=== PATIENT | female | born 1965 | race Caucasian/White ===

== ENCOUNTER 2024-10-07 09:19 | Emergency (ER) | payer BC ==
[2024-10-07] MEDS ORDERED: Sodium Chloride 0.9% 10 ML Syringe FLUSH PRN (09:38)
[2024-10-07 10:11] LABS: EOSINOPHILS PERCENT AUTO 0.7 % (0.0-4.0); HEMATOCRIT 30.7 % (33.0-47.0); HEMOGLOBIN 10.6 g/dL (12.0-16.0); IMMATURE GRAN ABSOLUTE AUTO 0.01 x10^3/uL (0.00-0.07); LYMPHOCYTES ABSOLUTE AUTO 1.1 x10^3/uL (1.0-4.8); LYMPHOCYTES PERCENT AUTO 27.3 % (25.0-50.0); MEAN CORPUSCULAR HEMOGLOBIN 31.5 pg (26.0-32.0); MEAN CORPUSCULAR HGB CONC 34.5 g/dL (32.0-36.0); MEAN CORPUSCULAR VOLUME 91.4 fL (78.0-93.0); MONOCYTES ABSOLUTE AUTO 0.5 x10^3/uL (0.0-0.8); MONOCYTES PERCENT AUTO 12.6 % (2.0-11.0); NEUTROPHILS ABSOLUTE AUTO 2.5 x10^3/uL (1.8-7.7); NEUTROPHILS PERCENT AUTO 59.2 % (50.0-80.0); PLATELET COUNT,PLT 138 x10^3/uL (130-400); RED BLOOD CELL COUNT 3.36 x10^6/uL (4.00-5.50); WHITE BLOOD CELL COUNT,WBC 4.1 x10^3/uL (4.0-10.0)
[2024-10-07 10:23] LABS: INR 0.9 (0.9-1.1); PROTHROMBIN TIME 9.9 SEC (9.6-12.0); PTT,PARTIAL THROMBOPLSTIN TIME 24.5 SEC (23.5-33.2)
[2024-10-07 10:27] LABS: ALBUMIN 3.4 g/dL (3.4-5.0); ANION GAP 11.9 mmol/L (5-15); BILIRUBIN TOTAL 0.6 mg/dL (0.2-1.0); CALCIUM 9.2 mg/dL (8.5-10.1); CREATININE 0.8 mg/dL (0.55-1.02); EST CRCL DRUG DOSING (CG) 63.41 mL/min; MAGNESIUM 1.6 mg/dL (1.8-2.4); POTASSIUM,K 3.9 mmol/L (3.5-5.1); PROTEIN TOTAL,TP 6.8 g/dL (6.4-8.2)
[2024-10-07] MEDS: Iopamidol 755 Mg/ML 100 ML Bottle IVPUSH ONE (10:54)
[2024-10-07] MEDS: Dexamethasone 4 MG/ML SDV IVPUSH SCH (12:40)
[2024-10-07] MEDS: levETIRAcetam 500 MG/5 ML SDV IVPUSH SCH (12:40)
[2024-10-07] MEDS: Omeprazole 20 MG Cap.CR PO ONE (12:41)
== END 2024-10-07 12:43 | disposition short-term general hospital (02) ==
LOC: VM.ED 09:19
DX: G93.6 Cerebral edema (principal); R47.01 Aphasia; E11.9 Type 2 diabetes mellitus without complications; Z79.84 Long term (current) use of oral hypoglycemic drugs
CPT/HCPCS: 70450; 71045; 80053; 83735; 84484; 85025; 85610; 85730; 93005; 96374; 96375; 99285-25; A9270-GY; J1100; J1953

== ENCOUNTER 2024-10-29 18:08 | Emergency (ER) | payer BC | END 2024-10-29 18:51 | disposition home or self-care (01) | LOC: VM.ED 18:08 | DX: E11.65 Type 2 diabetes mellitus with hyperglycemia (principal) | CPT/HCPCS: 82947; 99283; 99284 ==

== ENCOUNTER 2024-11-16 20:55 | Inpatient (IN) | payer BC ==
[2024-11-16] MEDS ORDERED: Sodium Chloride 0.9% 10 ML Syringe FLUSH PRN (21:02)
[2024-11-16] MEDS: Sodium Chloride 0.9% 1,000 ML IV ONE (21:30)
[2024-11-16 21:34] LABS: EOSINOPHILS PERCENT AUTO 0.3 % (0.0-4.0); HEMATOCRIT 26.3 % (33.0-47.0); HEMOGLOBIN 9.2 g/dL (12.0-16.0); IMMATURE GRAN ABSOLUTE AUTO 0.03 x10^3/uL (0.00-0.07); LYMPHOCYTES ABSOLUTE AUTO 0.4 x10^3/uL (1.0-4.8); LYMPHOCYTES PERCENT AUTO 12.5 % (25.0-50.0); MEAN CORPUSCULAR HEMOGLOBIN 30.5 pg (26.0-32.0); MEAN CORPUSCULAR VOLUME 87.1 fL (78.0-93.0); MONOCYTES ABSOLUTE AUTO 0.2 x10^3/uL (0.0-0.8); MONOCYTES PERCENT AUTO 7.7 % (2.0-11.0); NEUTROPHILS ABSOLUTE AUTO 2.3 x10^3/uL (1.8-7.7); NEUTROPHILS PERCENT AUTO 78.5 % (50.0-80.0); PLATELET COUNT,PLT 101 x10^3/uL (130-400); RED BLOOD CELL COUNT 3.02 x10^6/uL (4.00-5.50)
[2024-11-16 21:55] LABS: A/G RATIO 0.37; ALBUMIN 1.8 g/dL (3.4-5.0); BILIRUBIN TOTAL 0.5 mg/dL (0.2-1.0); CREATININE 0.9 mg/dL (0.55-1.02); EST CRCL DRUG DOSING (CG) 56.36 mL/min; PROTEIN TOTAL,TP 6.7 g/dL (6.4-8.2)
[2024-11-16 22:03] LABS: APPEARANCE,URINE CLEAR (CLEAR); BILIRUBIN,URINE NEGATIVE (NEGATIVE); COLOR,URINE YELLOW (YELLOW); GLUCOSE,URINE NEGATIVE (NEGATIVE); KETONES,URINE NEGATIVE (NEGATIVE); LEUKOCYTE ESTERASE,URINE NEGATIVE (NEGATIVE); NITRITE,URINE NEGATIVE (NEGATIVE); OCCULT BLOOD,URINE NEGATIVE (NEGATIVE); PH,URINE 5.5 (5.0-8.0); PROTEIN,URINE 30 mg/dL (NEGATIVE)
[2024-11-16 22:06] LABS: AMORPHOUS SEDIMENT,URINE OCCASIONAL; BACTERIA,URINE RARE /HPF (NOT SEEN); MUCUS,URINE NOT SEEN /LPF (NOT SEEN); RBC,URINE 0-5 /HPF (NOT SEEN); SQUAMOUS EPITHELIAL CELLS,UR RARE /HPF (NOT SEEN); WBC,URINE 0-5 /HPF (NOT SEEN)
[2024-11-16] MEDS: Lactated Ringers 1,000 ML IV ONE (22:45)
[2024-11-16] MEDS: levETIRAcetam 500 MG Tab PO ONE (23:13)
[2024-11-16] MEDS: Cefepime 2 GM Vial IVPUSH ONE (23:34)
[2024-11-17] MEDS: VANCOmycin 1 GM in Sodium Chloride 0.9% 250 ML IV ONE (00:19)
[2024-11-17] MEDS ORDERED: Ondansetron 4 MG/2 ML SDV IV PRN (01:57)
[2024-11-17] MEDS ORDERED: Albuterol/Ipratropium 3.0-0.5 MG/3 ML Neb Soln NEB PRN (01:57)
[2024-11-17] MEDS ORDERED: Polyethylene Glycol 3350 Powder 17 GM Packet PO PRN (01:57)
[2024-11-17] MEDS ORDERED: Glucagon,Human Recombinant 1 MG Vial IM PRN (02:12)
[2024-11-17] MEDS ORDERED: 50% Dextrose in Water 50 ML Syringe IVPUSH PRN (02:12)
[2024-11-17] MEDS: atorvaSTATin 10 MG Tab PO SCH (02:19)
[2024-11-17] MEDS: levETIRAcetam 500 MG Tab PO SCH ×2 (02:21→08:39)
[2024-11-17] MEDS: Sodium Chloride 0.9% 1,000 ML IV SCH ×2 (02:28→14:30)
[2024-11-17 04:58] LABS: LACTIC ACID 1.7 mmol/L (0.4-2.0)
[2024-11-17 06:44] LABS: EOSINOPHILS PERCENT AUTO 0.5 % (0.0-4.0); HEMATOCRIT 23.5 % (33.0-47.0); IMMATURE GRAN ABSOLUTE AUTO 0.03 x10^3/uL (0.00-0.07); LYMPHOCYTES ABSOLUTE AUTO 0.4 x10^3/uL (1.0-4.8); LYMPHOCYTES PERCENT AUTO 16.9 % (25.0-50.0); MEAN CORPUSCULAR HEMOGLOBIN 30.4 pg (26.0-32.0); MEAN CORPUSCULAR VOLUME 89.4 fL (78.0-93.0); MONOCYTES ABSOLUTE AUTO 0.2 x10^3/uL (0.0-0.8); NEUTROPHILS ABSOLUTE AUTO 1.6 x10^3/uL (1.8-7.7); NEUTROPHILS PERCENT AUTO 73.2 % (50.0-80.0); PLATELET COUNT,PLT 94 x10^3/uL (130-400); RED BLOOD CELL COUNT 2.63 x10^6/uL (4.00-5.50)
[2024-11-17 07:25] LABS: CALCIUM 8.4 mg/dL (8.5-10.1); CREATININE 0.7 mg/dL (0.55-1.02); EST CRCL DRUG DOSING (CG) 72.47 mL/min; POTASSIUM,K 3.9 mmol/L (3.5-5.1)
[2024-11-17 07:26] LABS: ANION GAP 10.9 mmol/L (5-15)
[2024-11-17 07:27] LABS: WHITE BLOOD CELL COUNT,WBC 2.1 x10^3/uL (4.0-10.0)
[2024-11-17] MEDS: Insulin Lispro 100 Units/ML 3 ML Vial SUBCUT SCH (08:37)
[2024-11-17] MEDS: Cefepime 2 GM in Sodium Chloride 0.9% 100 ML IV SCH ×2 (08:39→17:10)
[2024-11-17] MEDS: Enoxaparin 40 MG/0.4 ML Syringe SUBCUT SCH (08:39)
[2024-11-17] MEDS: Iopamidol 612 MG/ML 100 ML Bottle IVPUSH ONE (09:15)
[2024-11-17] MEDS: VANCOmycin 1 GM in Sodium Chloride 0.9% 250 ML IV SCH (10:30)
[2024-11-17] MEDS: Pantoprazole 40 MG Vial IVPUSH SCH (12:27)
[2024-11-17 16:21] LABS: CORONAVIRUS COVID-19 NAA NEGATIVE (NEGATIVE); INFLUENZA A NAA NEGATIVE (NEGATIVE)
[2024-11-17 16:22] LABS: INFLUENZA B NAA NEGATIVE (NEGATIVE); RESPIRATORY SYNCYTIAL VIR NAA NEGATIVE (NEGATIVE)
[2024-11-17] MEDS: Dexamethasone 4 MG Tab PO ONE (16:53)
[2024-11-17] MEDS: Acetaminophen 325 MG Tab PO PRN (16:53)
[2024-11-18 06:49] LABS: HEMOGLOBIN 9.4 g/dL (12.0-16.0); IMMATURE GRAN ABSOLUTE AUTO 0.04 x10^3/uL (0.00-0.07); LYMPHOCYTES ABSOLUTE AUTO 0.6 x10^3/uL (1.0-4.8); LYMPHOCYTES PERCENT AUTO 24.6 % (25.0-50.0); MEAN CORPUSCULAR HEMOGLOBIN 29.9 pg (26.0-32.0); MEAN CORPUSCULAR HGB CONC 33.6 g/dL (32.0-36.0); MEAN CORPUSCULAR VOLUME 89.2 fL (78.0-93.0); MONOCYTES ABSOLUTE AUTO 0.1 x10^3/uL (0.0-0.8); MONOCYTES PERCENT AUTO 6.1 % (2.0-11.0); NEUTROPHILS ABSOLUTE AUTO 1.5 x10^3/uL (1.8-7.7); NEUTROPHILS PERCENT AUTO 67.5 % (50.0-80.0); PLATELET COUNT,PLT 101 x10^3/uL (130-400); RED BLOOD CELL COUNT 3.14 x10^6/uL (4.00-5.50)
[2024-11-18 07:06] LABS: WHITE BLOOD CELL COUNT,WBC 2.3 x10^3/uL (4.0-10.0)
[2024-11-18 07:17] LABS: A/G RATIO 0.3; ALBUMIN 1.5 g/dL (3.4-5.0); ANION GAP 14.7 mmol/L (5-15); BILIRUBIN TOTAL 0.4 mg/dL (0.2-1.0); C-REACTIVE PROTEIN 10.72 mg/dL (<=0.50); CREATININE 0.9 mg/dL (0.55-1.02); EST CRCL DRUG DOSING (CG) 56.36 mL/min; POTASSIUM,K 4.7 mmol/L (3.5-5.1); PROTEIN TOTAL,TP 6.5 g/dL (6.4-8.2)
[2024-11-18] MEDS: Heparin Sodium 5,000 Units/ML Vial SUBCUT SCH (09:31)
[2024-11-18] MEDS: Sodium Chloride 0.9% 10 ML Syringe FLUSH PRN (10:11)
[2024-11-18] MEDS: Albuterol/Ipratropium 3.0-0.5 MG/3 ML Neb Soln NEB SCH (10:24)
[2024-11-18] MEDS: Furosemide 20 MG/2 ML VIAL IV ONE (10:24)
[2024-11-18] MEDS: Insulin Lispro 100 Units/ML 3 ML Vial SUBCUT SCH (12:25)
[2024-11-18] MEDS: Azithromycin 250 MG Tab PO SCH (14:57)
[2024-11-18] MEDS ORDERED: VANCOmycin 1.5 GM/300 ML 1.5 GM in Premix Bag 1 BAG IV SCH (15:30)
[2024-11-18] MEDS: Sodium Chloride 0.9% 500 ML IV ONE ×2 (16:32→17:40)
[2024-11-18 17:14] LABS: HEMATOCRIT 20.9 % (33.0-47.0); IMMATURE GRAN ABSOLUTE AUTO 0.04 x10^3/uL (0.00-0.07); LYMPHOCYTES ABSOLUTE AUTO 0.3 x10^3/uL (1.0-4.8); LYMPHOCYTES PERCENT AUTO 8.9 % (25.0-50.0); MEAN CORPUSCULAR HEMOGLOBIN 30.6 pg (26.0-32.0); MEAN CORPUSCULAR HGB CONC 34.4 g/dL (32.0-36.0); MEAN CORPUSCULAR VOLUME 88.9 fL (78.0-93.0); MONOCYTES ABSOLUTE AUTO 0.3 x10^3/uL (0.0-0.8); MONOCYTES PERCENT AUTO 10.1 % (2.0-11.0); NEUTROPHILS ABSOLUTE AUTO 2.5 x10^3/uL (1.8-7.7); NEUTROPHILS PERCENT AUTO 79.7 % (50.0-80.0); PLATELET COUNT,PLT 111 x10^3/uL (130-400); RED BLOOD CELL COUNT 2.35 x10^6/uL (4.00-5.50); WHITE BLOOD CELL COUNT,WBC 3.2 x10^3/uL (4.0-10.0)
[2024-11-18 17:20] LABS: A/G RATIO 0.35; ALBUMIN 1.4 g/dL (3.4-5.0); ANION GAP 17.4 mmol/L (5-15); BILIRUBIN TOTAL 0.3 mg/dL (0.2-1.0); CALCIUM 8.2 mg/dL (8.5-10.1); CREATININE 1.1 mg/dL (0.55-1.02); EST CRCL DRUG DOSING (CG) 46.11 mL/min; POTASSIUM,K 3.4 mmol/L (3.5-5.1); PROTEIN TOTAL,TP 5.4 g/dL (6.4-8.2)
[2024-11-18 17:29] LABS: HEMOGLOBIN 7.2 g/dL (12.0-16.0)
[2024-11-18] MEDS: Insulin Lispro 100 Units/ML 3 ML Vial SUBCUT ONE (17:35)
[2024-11-18] MEDS: Potassium Chloride 20 MEQ Tab.ER PO ONE (18:36)
[2024-11-18] MEDS: cefTRIAXone 1 GM Vial IVPUSH SCH (18:36)
[2024-11-19] MEDS: Sodium Chloride 0.9% 500 ML IV ONE (02:52)
[2024-11-19 07:54] LABS: EOSINOPHILS PERCENT AUTO 0.4 % (0.0-4.0); HEMATOCRIT 20.2 % (33.0-47.0); IMMATURE GRAN ABSOLUTE AUTO 0.06 x10^3/uL (0.00-0.07); LYMPHOCYTES ABSOLUTE AUTO 0.6 x10^3/uL (1.0-4.8); MEAN CORPUSCULAR HEMOGLOBIN 30.3 pg (26.0-32.0); MEAN CORPUSCULAR HGB CONC 34.2 g/dL (32.0-36.0); MEAN CORPUSCULAR VOLUME 88.6 fL (78.0-93.0); MONOCYTES ABSOLUTE AUTO 0.2 x10^3/uL (0.0-0.8); MONOCYTES PERCENT AUTO 7.9 % (2.0-11.0); NEUTROPHILS ABSOLUTE AUTO 1.7 x10^3/uL (1.8-7.7); NEUTROPHILS PERCENT AUTO 67.3 % (50.0-80.0); PLATELET COUNT,PLT 98 x10^3/uL (130-400); RED BLOOD CELL COUNT 2.28 x10^6/uL (4.00-5.50); WHITE BLOOD CELL COUNT,WBC 2.5 x10^3/uL (4.0-10.0)
[2024-11-19 08:03] LABS: HEMOGLOBIN 6.9 g/dL (12.0-16.0)
[2024-11-19 08:22] LABS: A/G RATIO 0.34; ALBUMIN 1.3 g/dL (3.4-5.0); ANION GAP 13.6 mmol/L (5-15); BILIRUBIN TOTAL 0.2 mg/dL (0.2-1.0); C-REACTIVE PROTEIN 5.23 mg/dL (<=0.50); CALCIUM 8.3 mg/dL (8.5-10.1); CREATININE 0.7 mg/dL (0.55-1.02); EST CRCL DRUG DOSING (CG) 72.47 mL/min; POTASSIUM,K 3.6 mmol/L (3.5-5.1); PROTEIN TOTAL,TP 5.1 g/dL (6.4-8.2)
[2024-11-20 08:19] LABS: HEMATOCRIT 21.3 % (33.0-47.0); HEMOGLOBIN 7.2 g/dL (12.0-16.0); MEAN CORPUSCULAR HEMOGLOBIN 30.6 pg (26.0-32.0); MEAN CORPUSCULAR HGB CONC 33.8 g/dL (32.0-36.0); MEAN CORPUSCULAR VOLUME 90.6 fL (78.0-93.0); PLATELET COUNT,PLT 105 x10^3/uL (130-400); RED BLOOD CELL COUNT 2.35 x10^6/uL (4.00-5.50); WHITE BLOOD CELL COUNT,WBC 2.4 x10^3/uL (4.0-10.0)
[2024-11-20 08:31] LABS: LYMPHOCYTES ABSOLUTE MAN 0.6 x10^3/uL (1.0-4.8); LYMPHOCYTES PERCENT MAN 24 % (25-50); MONOCYTES ABSOLUTE MAN 0.3 x10^3/uL (0.0-0.8); MONOCYTES PERCENT MAN 11 % (2-11); NEUTROPHILS ABSOLUTE MAN 1.6 x10^3/uL (1.8-7.7); NRBC MANUAL 1 /100WBC (0-5); SEG NEUTROPHILS PERCENT MAN 65 % (50-80)
[2024-11-20 08:32] LABS: HYPOCHROMASIA 2+ MODERATE; PLATELET COUNT ESTIMATE DECREASED; POLYCHROMASIA 1+ SLIGHT
[2024-11-20 08:33] LABS: A/G RATIO 0.38; ALBUMIN 1.6 g/dL (3.4-5.0); BILIRUBIN TOTAL 0.3 mg/dL (0.2-1.0); CALCIUM 8.6 mg/dL (8.5-10.1); CREATININE 0.7 mg/dL (0.55-1.02); EST CRCL DRUG DOSING (CG) 72.47 mL/min; POTASSIUM,K 3.8 mmol/L (3.5-5.1); PROTEIN TOTAL,TP 5.8 g/dL (6.4-8.2)
[2024-11-20 08:34] LABS: ANION GAP 10.8 mmol/L (5-15)
[2024-11-20] MEDS: Pantoprazole 40 MG Tab.CR PO SCH (17:28)
[2024-11-21 07:03] LABS: HEMATOCRIT 22.4 % (33.0-47.0); HEMOGLOBIN 7.6 g/dL (12.0-16.0); MEAN CORPUSCULAR HEMOGLOBIN 30.8 pg (26.0-32.0); MEAN CORPUSCULAR HGB CONC 33.9 g/dL (32.0-36.0); MEAN CORPUSCULAR VOLUME 90.7 fL (78.0-93.0); PLATELET COUNT,PLT 105 x10^3/uL (130-400); RED BLOOD CELL COUNT 2.47 x10^6/uL (4.00-5.50); WHITE BLOOD CELL COUNT,WBC 2.3 x10^3/uL (4.0-10.0)
[2024-11-21 07:36] LABS: A/G RATIO 0.42; ALBUMIN 1.8 g/dL (3.4-5.0); BILIRUBIN TOTAL 0.2 mg/dL (0.2-1.0); C-REACTIVE PROTEIN 3.38 mg/dL (<=0.50); CALCIUM 8.8 mg/dL (8.5-10.1); CREATININE 0.7 mg/dL (0.55-1.02); EST CRCL DRUG DOSING (CG) 71.22 mL/min; POTASSIUM,K 3.9 mmol/L (3.5-5.1); PROTEIN TOTAL,TP 6.1 g/dL (6.4-8.2)
[2024-11-21 07:38] LABS: ANION GAP 10.9 mmol/L (5-15)
[2024-11-21 07:39] LABS: BAND PERCENT MAN 4 % (0-6); BASOPHILS PERCENT MAN 2 % (0-1); EOSINOPHILS PERCENT MAN 1 % (0-4); LYMPHOCYTES ABSOLUTE MAN 0.7 x10^3/uL (1.0-4.8); LYMPHOCYTES PERCENT MAN 29 % (25-50); MONOCYTES ABSOLUTE MAN 0.3 x10^3/uL (0.0-0.8); MONOCYTES PERCENT MAN 11 % (2-11); NEUTROPHILS ABSOLUTE MAN 1.3 x10^3/uL (1.8-7.7); SEG NEUTROPHILS PERCENT MAN 53 % (50-80)
[2024-11-21 07:40] LABS: BURR CELLS 1+ SLIGHT; HYPOCHROMASIA 1+ SLIGHT; OVALOCYTES 2+ MODERATE
[2024-11-21 07:41] LABS: PLATELET COUNT ESTIMATE DECREASED
[2024-11-21] MEDS: Memantine 10 MG Tab PO SCH (08:37)
[2024-11-21] MEDS: metFORMIN 500 MG Tab PO SCH (18:21)
[2024-11-21] MEDS: Cefuroxime 250 MG Tab PO SCH (21:33)
[2024-11-22 06:52] LABS: HEMATOCRIT 23.4 % (33.0-47.0); HEMOGLOBIN 7.7 g/dL (12.0-16.0); MEAN CORPUSCULAR HEMOGLOBIN 30.2 pg (26.0-32.0); MEAN CORPUSCULAR HGB CONC 32.9 g/dL (32.0-36.0); MEAN CORPUSCULAR VOLUME 91.8 fL (78.0-93.0); PLATELET COUNT,PLT 115 x10^3/uL (130-400); RED BLOOD CELL COUNT 2.55 x10^6/uL (4.00-5.50)
[2024-11-22 07:09] LABS: A/G RATIO 0.47; BILIRUBIN TOTAL 0.3 mg/dL (0.2-1.0); CALCIUM 8.9 mg/dL (8.5-10.1); CREATININE 0.7 mg/dL (0.55-1.02); EST CRCL DRUG DOSING (CG) 34.44 mL/min; POTASSIUM,K 4.3 mmol/L (3.5-5.1); PROTEIN TOTAL,TP 6.3 g/dL (6.4-8.2)
[2024-11-22 07:10] LABS: ANION GAP 9.3 mmol/L (5-15)
[2024-11-22 07:24] LABS: BAND PERCENT MAN 3 % (0-6); HYPOCHROMASIA 2+ MODERATE; LYMPHOCYTES ABSOLUTE MAN 0.9 x10^3/uL (1.0-4.8); LYMPHOCYTES PERCENT MAN 31 % (25-50); MONOCYTES ABSOLUTE MAN 0.3 x10^3/uL (0.0-0.8); MONOCYTES PERCENT MAN 10 % (2-11); NEUTROPHILS ABSOLUTE MAN 1.8 x10^3/uL (1.8-7.7); NRBC MANUAL 1 /100WBC (0-5); POLYCHROMASIA 1+ SLIGHT; SEG NEUTROPHILS PERCENT MAN 56 % (50-80)
[2024-11-22 07:25] LABS: PLATELET COUNT ESTIMATE DECREASED
[2024-11-22 07:26] LABS: OVALOCYTES 1+ SLIGHT
[2024-11-22] MEDS: atorvaSTATin 10 MG Tab PO SCH (08:46)
[2024-11-22] MEDS: Midodrine 5 MG Tab PO SCH (11:32)
== END 2024-11-22 13:13 | disposition swing bed (61) | DRG 720 ==
LOC: VM.ED 20:55 → VM.MS 23:27
PROVIDERS: ADMIT Internal Medicine; ATTEND Family Medicine
DX: A41.9 Sepsis, unspecified organism (principal); E87.20 Acidosis, unspecified; E46 Unspecified protein-calorie malnutrition; J18.9 Pneumonia, unspecified organism; Z66 Do not resuscitate; D61.818 Other pancytopenia; C79.31 Secondary malignant neoplasm of brain; R47.01 Aphasia; E11.9 Type 2 diabetes mellitus without complications; E78.5 Hyperlipidemia, unspecified; R21 Rash and other nonspecific skin eruption; I95.1 Orthostatic hypotension; E86.0 Dehydration; R47.1 Dysarthria and anarthria; C54.1 Malignant neoplasm of endometrium; Z79.4 Long term (current) use of insulin; Z79.84 Long term (current) use of oral hypoglycemic drugs; Z79.899 Other long term (current) drug therapy; Z87.891 Personal history of nicotine dependence; Z68.21 Body mass index [BMI] 21.0-21.9, adult
CPT/HCPCS: 0241U; 36415; 70470; 71046; 71250; 74176; 80048; 80053; 80202; 81001; 82150; 82274; 82550; 82947; 83605; 83690; 83880; 84145; 85025; 86140; 86850; 86900; 86901; 87040; 87070; 87428-QW; 94640; 94760; 96360; 96361; 97110-GP; 97116-GP; 97161-GP; 97165-GO; 97535-GO; 99223; 99223-GT; 99284; 99285-25; A9270-GY; J0692; J0696; J1642; J1644; J1650; J1815-GY; J1940; J2470; J7030; J7050; J7120; J8540; Q9967

== ENCOUNTER 2024-11-22 08:43 | Inpatient (IN) | payer BC ==
[2024-11-22] MEDS ORDERED: Glucagon,Human Recombinant 1 MG Vial IM PRN ×2 (13:16)
[2024-11-22] MEDS ORDERED: Ondansetron 4 MG/2 ML SDV IV PRN (13:16)
[2024-11-22] MEDS ORDERED: 50% Dextrose in Water 50 ML Syringe IVPUSH PRN (13:16)
[2024-11-22] MEDS ORDERED: Polyethylene Glycol 3350 Powder 17 GM Packet PO PRN (13:16)
[2024-11-22] MEDS ORDERED: Acetaminophen 325 MG Tab PO PRN (13:16)
[2024-11-22] MEDS: Albuterol/Ipratropium 3.0-0.5 MG/3 ML Neb Soln NEB SCH (15:03)
[2024-11-22] MEDS: Azithromycin 250 MG Tab PO SCH (16:20)
[2024-11-22] MEDS: Midodrine 5 MG Tab PO SCH (16:21)
[2024-11-22] MEDS: Pantoprazole 40 MG Tab.CR PO SCH (16:21)
[2024-11-22] MEDS ORDERED: Midodrine 5 MG Tab PO SCH (17:00)
[2024-11-22] MEDS: Insulin Lispro 100 Units/ML 3 ML Vial SUBCUT SCH (17:15)
[2024-11-22] MEDS: metFORMIN 500 MG Tab PO SCH (17:32)
[2024-11-22] MEDS: Heparin Sodium 5,000 Units/ML Vial SUBCUT SCH (21:40)
[2024-11-22] MEDS: Memantine 10 MG Tab PO SCH (21:40)
[2024-11-22] MEDS: Cefuroxime 250 MG Tab PO SCH (21:40)
[2024-11-22] MEDS: levETIRAcetam 500 MG Tab PO SCH (21:40)
[2024-11-23] MEDS: atorvaSTATin 10 MG Tab PO SCH (09:47)
[2024-11-24] MEDS ORDERED: Albuterol/Ipratropium 3.0-0.5 MG/3 ML Neb Soln NEB PRN (08:13)
[2024-11-24] MEDS: metFORMIN 500 MG Tab PO SCH (18:09)
[2024-11-25] MEDS: Sodium Chloride 0.9% 10 ML Syringe FLUSH PRN (14:37)
[2024-11-26] MEDS: Ondansetron 4 MG Tab.DIS PO PRN (12:38)
[2024-11-28] MEDS: Dexamethasone 2 MG Tab PO SCH (17:08)
[2024-11-30] MEDS: Sulfamethoxazole/Trimethoprim 800-160 MG Tab PO SCH (08:57)
[2024-12-03] MEDS ORDERED: Promethazine Topical Gel 25mg/0.5 ML Syringe TOP PRN (08:40)
[2024-12-03] MEDS: Dexamethasone 4 MG/ML SDV IVPUSH ONE (09:24)
[2024-12-03] MEDS: Pantoprazole 40 MG Vial IVPUSH ONE (09:25)
[2024-12-03] MEDS: levETIRAcetam 500 MG/5 ML SDV IVPUSH ONE (09:25)
[2024-12-03 09:30] LABS: EOSINOPHILS PERCENT AUTO 0.7 % (0.0-4.0); HEMATOCRIT 29.8 % (33.0-47.0); HEMOGLOBIN 10.4 g/dL (12.0-16.0); IMMATURE GRAN ABSOLUTE AUTO 0.01 x10^3/uL (0.00-0.07); LYMPHOCYTES ABSOLUTE AUTO 0.9 x10^3/uL (1.0-4.8); LYMPHOCYTES PERCENT AUTO 31.2 % (25.0-50.0); MEAN CORPUSCULAR HEMOGLOBIN 30.7 pg (26.0-32.0); MEAN CORPUSCULAR HGB CONC 34.9 g/dL (32.0-36.0); MEAN CORPUSCULAR VOLUME 87.9 fL (78.0-93.0); MONOCYTES ABSOLUTE AUTO 0.1 x10^3/uL (0.0-0.8); MONOCYTES PERCENT AUTO 3.5 % (2.0-11.0); NEUTROPHILS ABSOLUTE AUTO 1.8 x10^3/uL (1.8-7.7); NEUTROPHILS PERCENT AUTO 64.2 % (50.0-80.0); PLATELET COUNT,PLT 172 x10^3/uL (130-400); RED BLOOD CELL COUNT 3.39 x10^6/uL (4.00-5.50)
[2024-12-03 09:45] LABS: WHITE BLOOD CELL COUNT,WBC 2.9 x10^3/uL (4.0-10.0)
[2024-12-03 09:49] LABS: A/G RATIO 0.82; ALBUMIN 3.1 g/dL (3.4-5.0); BILIRUBIN TOTAL 0.4 mg/dL (0.2-1.0); CREATININE 0.8 mg/dL (0.55-1.02); EST CRCL DRUG DOSING (CG) 62.46 mL/min; POTASSIUM,K 3.4 mmol/L (3.5-5.1); PROTEIN TOTAL,TP 6.9 g/dL (6.4-8.2)
[2024-12-03 09:51] LABS: ANION GAP 12.4 mmol/L (5-15)
[2024-12-03] MEDS: NS + KCl 20mEq/L 1,000 ML IV SCH (11:25)
[2024-12-03] MEDS: Ondansetron 4 MG Tab.DIS PO PRN (20:45)
[2024-12-04 08:58] LABS: BASOPHILS PERCENT AUTO 0.5 % (0.2-1.2); EOSINOPHILS PERCENT AUTO 1.4 % (0.0-4.0); HEMATOCRIT 25.9 % (33.0-47.0); IMMATURE GRAN ABSOLUTE AUTO 0.02 x10^3/uL (0.00-0.07); LYMPHOCYTES ABSOLUTE AUTO 0.9 x10^3/uL (1.0-4.8); LYMPHOCYTES PERCENT AUTO 40.2 % (25.0-50.0); MEAN CORPUSCULAR HEMOGLOBIN 31.1 pg (26.0-32.0); MEAN CORPUSCULAR HGB CONC 34.7 g/dL (32.0-36.0); MEAN CORPUSCULAR VOLUME 89.6 fL (78.0-93.0); MONOCYTES ABSOLUTE AUTO 0.1 x10^3/uL (0.0-0.8); MONOCYTES PERCENT AUTO 4.1 % (2.0-11.0); NEUTROPHILS ABSOLUTE AUTO 1.2 x10^3/uL (1.8-7.7); NEUTROPHILS PERCENT AUTO 52.9 % (50.0-80.0); PLATELET COUNT,PLT 130 x10^3/uL (130-400); RED BLOOD CELL COUNT 2.89 x10^6/uL (4.00-5.50)
[2024-12-04 09:03] LABS: WHITE BLOOD CELL COUNT,WBC 2.2 x10^3/uL (4.0-10.0)
[2024-12-04 09:09] LABS: CALCIUM 8.5 mg/dL (8.5-10.1); CREATININE 0.7 mg/dL (0.55-1.02); EST CRCL DRUG DOSING (CG) 71.38 mL/min; POTASSIUM,K 3.7 mmol/L (3.5-5.1)
[2024-12-04 09:10] LABS: ANION GAP 12.7 mmol/L (5-15)
[2024-12-04] MEDS: levETIRAcetam 500 MG/5 ML SDV IVPUSH SCH (09:30)
[2024-12-04] MEDS: Dexamethasone 4 MG/ML SDV IVPUSH SCH ×2 (09:35→10:06)
[2024-12-04] MEDS: Pantoprazole 40 MG Vial IVPUSH ONE (09:37)
[2024-12-04] MEDS: Ondansetron 4 MG/2 ML SDV IVPUSH PRN (17:44)
[2024-12-05 07:25] LABS: A/G RATIO 0.85; ALBUMIN 2.8 g/dL (3.4-5.0); BILIRUBIN TOTAL 0.4 mg/dL (0.2-1.0); CALCIUM 8.7 mg/dL (8.5-10.1); CREATININE 0.7 mg/dL (0.55-1.02); EST CRCL DRUG DOSING (CG) 72.47 mL/min; POTASSIUM,K 3.5 mmol/L (3.5-5.1); PROTEIN TOTAL,TP 6.1 g/dL (6.4-8.2)
[2024-12-05 07:27] LABS: ANION GAP 15.5 mmol/L (5-15)
[2024-12-05 07:31] LABS: BASOPHILS PERCENT AUTO 0.4 % (0.2-1.2); EOSINOPHILS PERCENT AUTO 1.5 % (0.0-4.0); HEMOGLOBIN 9.3 g/dL (12.0-16.0); IMMATURE GRAN ABSOLUTE AUTO 0.04 x10^3/uL (0.00-0.07); LYMPHOCYTES PERCENT AUTO 38.3 % (25.0-50.0); MEAN CORPUSCULAR HEMOGLOBIN 31.1 pg (26.0-32.0); MEAN CORPUSCULAR HGB CONC 35.8 g/dL (32.0-36.0); MONOCYTES ABSOLUTE AUTO 0.2 x10^3/uL (0.0-0.8); MONOCYTES PERCENT AUTO 6.8 % (2.0-11.0); NEUTROPHILS ABSOLUTE AUTO 1.4 x10^3/uL (1.8-7.7); NEUTROPHILS PERCENT AUTO 51.5 % (50.0-80.0); PLATELET COUNT,PLT 116 x10^3/uL (130-400); RED BLOOD CELL COUNT 2.99 x10^6/uL (4.00-5.50)
[2024-12-05 07:57] LABS: WHITE BLOOD CELL COUNT,WBC 2.7 x10^3/uL (4.0-10.0)
[2024-12-05] MEDS: Ondansetron 4 MG/2 ML SDV IVPUSH SCH (09:03)
[2024-12-05] MEDS: Iopamidol 612 MG/ML 100 ML Bottle IVPUSH ONE (11:17)
[2024-12-06] MEDS: Lactobacillus Rhamnosus GG (Probiotic) Cap PO SCH (12:22)
[2024-12-06] MEDS: Ondansetron 4 MG Tab.DIS PO SCH (17:00)
[2024-12-06] MEDS: levETIRAcetam Soln 500 MG/5 ML Cup PO SCH (20:30)
[2024-12-06] MEDS: Dexamethasone 2 MG Tab PO SCH (20:30)
== END 2024-12-07 10:50 | disposition home health service (06) | DRG 861 ==
LOC: VM.MS 13:20
PROVIDERS: ADMIT Family Medicine; ATTEND Family Medicine
DX: R53.1 Weakness (principal); D61.818 Other pancytopenia; E46 Unspecified protein-calorie malnutrition; J18.9 Pneumonia, unspecified organism; R65.10 Systemic inflammatory response syndrome (SIRS) of non-infectious origin without acute organ dysfunction; E87.20 Acidosis, unspecified; C79.82 Secondary malignant neoplasm of genital organs; E11.9 Type 2 diabetes mellitus without complications; F15.90 Other stimulant use, unspecified, uncomplicated; E86.0 Dehydration; K21.9 Gastro-esophageal reflux disease without esophagitis; C79.31 Secondary malignant neoplasm of brain; Z79.1 Long term (current) use of non-steroidal anti-inflammatories (NSAID); Z79.4 Long term (current) use of insulin; Z79.02 Long term (current) use of antithrombotics/antiplatelets; Z79.899 Other long term (current) drug therapy; Z79.84 Long term (current) use of oral hypoglycemic drugs; Z87.891 Personal history of nicotine dependence; Z68.20 Body mass index [BMI] 20.0-20.9, adult
CPT/HCPCS: 36415; 70470; 80048; 80053; 82947; 83690; 83735; 85025; 94640; 94760; 97110-GO; 97110-GP; 97112-GP; 97116-GP; 97535-GO; A9270-GY; J1100; J1642; J1644; J1953; J2405; J2470; J3480; J8540; Q3014; Q9967

== ENCOUNTER 2025-02-15 03:25 | Emergency (ER) | payer MEDICAID | END 2025-02-15 03:53 | disposition home or self-care (01) | LOC: VM.ED 03:25 | DX: S01.01XA Laceration without foreign body of scalp, initial encounter (principal); E11.9 Type 2 diabetes mellitus without complications; Z79.4 Long term (current) use of insulin; Z79.899 Other long term (current) drug therapy; Z90.49 Acquired absence of other specified parts of digestive tract; W01.198A Fall on same level from slipping, tripping and stumbling with subsequent striking against other object, initial encounter | CPT/HCPCS: 12001; 99283 ==